=== PATIENT | male | born 1980 | race American Indian/Alaskan Native ===

== ENCOUNTER 2017-05-18 11:52 | Emergency (ER) | payer OTHER ==
[2017-05-18] MEDS ORDERED: MOTRIN PO ONE (14:10)
[2017-05-18] MEDS ORDERED: FLEXERIL PO ONE (14:10)
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
[2017-05-18 16:38] VITALS: BP 120/60
== END 2017-05-18 16:41 | disposition home or self-care (01) ==
LOC: ED 11:52
DX: S16.1XXA Strain of muscle, fascia and tendon at neck level, initial encounter (principal); J32.1 Chronic frontal sinusitis; M25.512 Pain in left shoulder; M54.6 Pain in thoracic spine; M50.30 Other cervical disc degeneration, unspecified cervical region; J45.909 Unspecified asthma, uncomplicated; F17.200 Nicotine dependence, unspecified, uncomplicated; Z91.048 Other nonmedicinal substance allergy status; V49.59XA Passenger injured in collision with other motor vehicles in traffic accident, initial encounter; Y93.89 Activity, other specified; Y92.89 Other specified places as the place of occurrence of the external cause; Y99.8 Other external cause status
CPT/HCPCS: 70450; 72070; 72125